=== PATIENT | female | born 1955 | race Two or more races ===

== ENCOUNTER 2020-09-19 03:33 | Emergency (ER) | payer OTHER ==
[~2020-09-19] VITALS: Ht 157.5 cm; Wt 122.5 kg
[2020-09-19 03:40] VITALS: BP 178/92
[2020-09-19] MEDS ORDERED: PERCOCET 5-3251 EACH ORAL (03:53)
[2020-09-19] MEDS ORDERED: PREDNISONE20 MG ORAL (03:53)
--- NOTE | 2020-09-19 03:53 | Emergency Room Report ---
History of Present Illness General Chief Complaint: Pain Source: Patient Present Illness HPI This is a 65-year-old female with a BMI of 49, history of high blood pressure and diabetes. She presents with treatment of neck pain and arm pain. She had this problem before. She was at [facility] within the last year. She says she has x-ray and study done. She also has a history of lower back pain with sciatica. She complained of neck pain on the right side. It radiates down her left arm. Pain is sharp. 10 out of 10. Worse with movement of her neck. Better with rest. No focal deficit. No anesthesia. No incontinence of bowel or urine. Allergies: Coded Allergies: No Known Allergies (Unverified , 09/19/20) COVID-19 Screening Contact w/high risk pt: No Experienced COVID-19 symptoms?: No COVID-19 Testing performed CANINE ENFORCEMENT OFFICER: No Patient History Past Medical History: see triage record, old chart reviewed, DM, HTN Past Surgical History: other Pertinent Family History: none Social History: Denies: alcohol use Now: No Immunizations: other Reviewed Nursing Documentation: PMH: Agreed; PSxH: Agreed Nursing Documentation-PMH Hx Hypertension: Yes Hx Diabetes: Yes Review of Systems Eye: Denies: eye pain, blurred vision ENT: Denies: ear pain, nose congestion, throat swelling Respiratory: Denies: cough, shortness of breath Cardiovascular: Denies: chest pain, palpitations Gastrointestinal: Denies: abdominal pain, diarrhea, nausea, vomiting Musculoskeletal: Reports: joint pain; Denies: back pain Skin: Denies: rash Neurological: Denies: headache, numbness Endocrine: Denies: increased thirst, increased urine Hematologic/Lymphatic: Denies: easy bruising All Other Systems: negative except mentioned in HPI Physical Exam Vital Signs Date Time Temp Pulse Resp B/P (MAP) Pulse Ox O2 Delivery O2 Flow Rate FiO2 09/19/20 03:36 98.2 76 18 178/92 (120) 98 Room Air Vitals blood pressure Sp02 EP Interpretation: reviewed, normal General Appearance: well appearing, no apparent distress, alert, obese Head: normocephalic, atraumatic Eyes: bilateral eye PERRL, bilateral eye EOMI ENT: hearing grossly normal, normal pharynx Neck: full range of motion, supple, no meningismus, other - Tenderness to the right lateral aspect of her neck. No midline tenderness. No anesthesia. Respiratory: chest non-tender, lungs clear, normal breath sounds Cardiovascular #1: regular rate, rhythm, no murmur Gastrointestinal: normal bowel sounds, non tender, no mass, no organomegaly, no bruit, non-distended Musculoskeletal: back normal, normal range of motion, gait/station normal Psychiatric: mood/affect normal Medical Decision Making Diagnostic Impression: Primary Impression: Cervical radiculopathy, acute Additional Impressions: Hypertension Qualified Codes: I10 - Essential (primary) hypertension Morbid obesity with BMI of 45.0-49.9, adult ER Course Patient presents with cervical radiculopathy. No evidence of cauda equina syndrome, spinal epidural abscess or neoplastic process. I see no need for diagnostic studies since this is a chronic issue and she has studies done in the past. Last Vital Signs Date Time Temp Pulse Resp B/P (MAP) Pulse Ox O2 Delivery O2 Flow Rate FiO2 09/19/20 03:36 98.2 76 18 178/92 (120) 98 Room Air Status: improved Disposition: HOME, SELF-CARE Condition: Stable Scripts Prednisone* (PREDNISONE*) 20 Mg Tablet 20 MG ORAL DAILY, #5 TAB Prov: Baljeet Ansari MD 09/19/20 Oxycodone/Acetaminophen 5-325* (PERCOCET 5-325 MG TABLET*) 1 Each Tablet 1 TAB ORAL Q6H PRN for For Pain, #20 TAB Prov: Baljeet Ansari MD 09/19/20 Additional Instructions: Follow-up with your doctor in 7 days. If you have not had an MRI, you may need one. Return if symptoms worsen. Baljeet Ansari MD Sep 19, 2020 03:53
[2020-09-19] MEDS ORDERED: HYDROmorphone 1mg/ml Carpuject IM ONE (04:00)
[2020-09-19 04:04] VITALS: BP 157/79
== END 2020-09-19 04:07 | disposition home or self-care (01) ==
LOC: EDBD 03:33 → EMR 03:50
DX: M54.12 Radiculopathy, cervical region (principal); I10 Essential (primary) hypertension; E66.01 Morbid (severe) obesity due to excess calories; Z68.42 Body mass index [BMI] 45.0-49.9, adult; E11.9 Type 2 diabetes mellitus without complications
CPT/HCPCS: J1170; Z7502; 99282

== ENCOUNTER 2020-10-10 10:19 | Emergency (ER) | payer OTHER ==
[~2020-10-10] VITALS: Ht 157.5 cm; Wt 145.1 kg
[~2020-10-10 10:19] MED LIST: PERCOCET 5-3251 EACH ORAL; PREDNISONE20 MG ORAL
[2020-10-10 10:27] VITALS: BP 151/100
--- NOTE | 2020-10-10 10:27 | NUR ---
ED Nurse Note: Pt walked in to ED from home c/o left arm pain radiating to left thand x 3 days. Denies injury/ trauma to the area. AAOx4, verbally responsive. ERMD at bedside.
[2020-10-10] MEDS ORDERED: Methocarbamol 500mg tab ORAL ONE (10:45)
[2020-10-10] MEDS ORDERED: Ketorolac 30mg Inj IM ONE (10:45)
--- NOTE | 2020-10-10 10:49 | Emergency Room Report ---
History of Present Illness General Chief Complaint: Pain Source: Patient (Katie Irwin M.D.) Present Illness HPI Patient is a 65-year-old female past medical history of obesity, cervical radiculopathy and arthritis who presents to the ER complaining of left arm pain. Patient states this has been going on for a long time and has been seen here previously for the same complaint. Patient states that she was told to take Tylenol but that does not help her pain. She says the pain is worse when turning her neck. She denies any trauma. Denies any headache. She denies any chest pain or shortness of breath. She denies any focal weakness. She denies any paresthesias. Patient states that the maximal pain starts at her shoulder and goes down. (Katie Irwin M.D.) Allergies: Coded Allergies: No Known Allergies (Unverified , 09/19/20) COVID-19 Screening Contact w/high risk pt: No Experienced COVID-19 symptoms?: No COVID-19 Testing performed SENIOR BIOSTATISTICIAN/GROUP LEADER: No (Katie Irwin M.D.) Patient History Reviewed Nursing Documentation: PMH: Agreed; PSxH: Agreed (Katie Irwin M.D.) Nursing Documentation-PMH Past Medical History: No History, Except For Hx Hypertension: Yes Hx Asthma: Yes Hx Diabetes: Yes (Katie Irwin M.D.) Review of Systems All Other Systems: negative except mentioned in HPI (Katie Irwin M.D.) Physical Exam Vital Signs Date Time Temp Pulse Resp B/P (MAP) Pulse Ox O2 Delivery O2 Flow Rate FiO2 10/10/20 10:23 97.7 74 18 151/100 (117) 98 Room Air Sp02 EP Interpretation: reviewed, normal General Appearance: alert, GCS 15, non-toxic, mild distress Head: normocephalic, atraumatic Eyes: bilateral eye normal inspection, bilateral eye PERRL ENT: hearing grossly normal, normal pharynx, no angioedema, normal voice Neck: full range of motion, supple/symm/no masses, tender - Left lateral cervical spine tenderness to palpation with no step-offs Respiratory: chest non-tender, lungs clear, normal breath sounds, speaking full sentences Cardiovascular #1: normal peripheral pulses, regular rate, rhythm Cardiovascular #2: 2+ radial (R), 2+ radial (L) Gastrointestinal: normal bowel sounds, non tender, soft, non-distended, no guarding, no rebound, overweight Rectal: deferred Musculoskeletal: other - Left diffuse shoulder tenderness to palpation and range of motion no obvious deformity sensation and strength intact Neurologic: motor strength/tone normal, splash line operator III-XII nml as tested, distal neuro normal, oriented x3, sensory intact Psychiatric: no suicidal/homicidal ideation Skin: no rash Lymphatic: no adenopathy (Katie Irwin M.D.) Medical Decision Making Diagnostic Impression: Primary Impression: Pneumonia Additional Impressions: Cervical radiculopathy, acute Morbid obesity with BMI of 45.0-49.9, adult Osteoarthritis ER Course Patient pancultured. Patient's COVID-19 PCR negative. Patient's chest x-ray and physical exam consistent with pneumonia. Patient started on azithromycin and ceftriaxone. Patient will be admitted for further treatment and evaluation. Laboratory Tests Test 10/10/20 13:00 White Blood Count 12.5 K/UL (4.8-10.8) H Red Blood Count 4.11 M/UL (4.20-5.40) L Hemoglobin 12.6 G/DL (12.0-16.0) Hematocrit 40.0 % (37.0-47.0) Mean Corpuscular Volume 97 FL (80-99) Mean Corpuscular Hemoglobin 30.7 PG (27.0-31.0) Mean Corpuscular Hemoglobin Concent 31.6 G/DL (32.0-36.0) L Red Cell Distribution Width 13.6 % (11.6-14.8) Platelet Count 329 K/UL (150-450) Mean Platelet Volume 8.1 FL (6.5-10.1) Neutrophils (%) (Auto) 69.2 % (45.0-75.0) Lymphocytes (%) (Auto) 11.7 % (20.0-45.0) L Monocytes (%) (Auto) 11.8 % (1.0-10.0) H Eosinophils (%) (Auto) 5.9 % (0.0-3.0) H Basophils (%) (Auto) 1.4 % (0.0-2.0) Prothrombin Time 10.0 SEC (9.30-11.50) Prothrombin Time INR 0.9 (0.9-1.1) Activated Partial Thromboplast Time 25 SEC (23-33) Sodium Level 130 MMOL/L (136-145) L Potassium Level 4.2 MMOL/L (3.5-5.1) Chloride Level 97 MMOL/L (98-107) L Carbon Dioxide Level 26 MMOL/L (21-32) Anion Gap 7 mmol/L (5-15) Blood Urea Nitrogen 20 mg/dL (7-18) H Creatinine 1.0 MG/DL (0.55-1.30) Estimated Glomerular Filtration Rate 56.0 mL/min (>60) Glucose Level 124 MG/DL (74-106) H Lactic Acid Level 1.70 mmol/L (0.4-2.0) Calcium Level 9.6 MG/DL (8.5-10.1) Magnesium Level 1.8 MG/DL (1.8-2.4) Total Bilirubin 0.3 MG/DL (0.2-1.0) Aspartate Amino Transferase (AST) 18 U/L (15-37) Alanine Aminotransferase (ALT) 20 U/L (12-78) Alkaline Phosphatase 95 U/L (46-116) Troponin I 0.000 ng/mL (0.000-0.056) Pro-B-Type Natriuretic Peptide 107 pg/mL (0-125) Total Protein 7.6 G/DL (6.4-8.2) Albumin 3.2 G/DL (3.4-5.0) L Globulin 4.4 g/dL Albumin/Globulin Ratio 0.7 (1.0-2.7) L Microbiology Date/Time Source Procedure Growth Status 10/10/20 13:00 Nasopharynx SARS-CoV-2 RdRp Gene Assay - Final Complete (Katie Irwin M.D.) ER Course Assumed care of the patient from the previous provider at approximately 1400. Please refer to initial note for full history and physical exam. Briefly, 65-year-old female presenting for evaluation of myalgias diagnosed with pneumonia. Covid negative. Other labs within normal limits. Received antibiotics. At the time of signout we are waiting approval for admission. [facility]. Yee is the accepting physician. She is stable for transport. 0450 No beds available at [facility]. Will transfer to [facility]. Dr. Pavon is the accepting physician. Laboratory Tests Test 10/10/20 13:00 10/10/20 13:50 White Blood Count 12.5 K/UL (4.8-10.8) H Red Blood Count 4.11 M/UL (4.20-5.40) L Hemoglobin 12.6 G/DL (12.0-16.0) Hematocrit 40.0 % (37.0-47.0) Mean Corpuscular Volume 97 FL (80-99) Mean Corpuscular Hemoglobin 30.7 PG (27.0-31.0) Mean Corpuscular Hemoglobin Concent 31.6 G/DL (32.0-36.0) L Red Cell Distribution Width 13.6 % (11.6-14.8) Platelet Count 329 K/UL (150-450) Mean Platelet Volume 8.1 FL (6.5-10.1) Neutrophils (%) (Auto) 69.2 % (45.0-75.0) Lymphocytes (%) (Auto) 11.7 % (20.0-45.0) L Monocytes (%) (Auto) 11.8 % (1.0-10.0) H Eosinophils (%) (Auto) 5.9 % (0.0-3.0) H Basophils (%) (Auto) 1.4 % (0.0-2.0) Prothrombin Time 10.0 SEC (9.30-11.50) Prothrombin Time INR 0.9 (0.9-1.1) Activated Partial Thromboplast Time 25 SEC (23-33) Sodium Level 130 MMOL/L (136-145) L Potassium Level 4.2 MMOL/L (3.5-5.1) Chloride Level 97 MMOL/L (98-107) L Carbon Dioxide Level 26 MMOL/L (21-32) Anion Gap 7 mmol/L (5-15) Blood Urea Nitrogen 20 mg/dL (7-18) H Creatinine 1.0 MG/DL (0.55-1.30) Estimated Glomerular Filtration Rate 56.0 mL/min (>60) Glucose Level 124 MG/DL (74-106) H Lactic Acid Level 1.70 mmol/L (0.4-2.0) Calcium Level 9.6 MG/DL (8.5-10.1) Magnesium Level 1.8 MG/DL (1.8-2.4) Total Bilirubin 0.3 MG/DL (0.2-1.0) Aspartate Amino Transferase (AST) 18 U/L (15-37) Alanine Aminotransferase (ALT) 20 U/L (12-78) Alkaline Phosphatase 95 U/L (46-116) Troponin I 0.000 ng/mL (0.000-0.056) Pro-B-Type Natriuretic Peptide 107 pg/mL (0-125) Total Protein 7.6 G/DL (6.4-8.2) Albumin 3.2 G/DL (3.4-5.0) L Globulin 4.4 g/dL Albumin/Globulin Ratio 0.7 (1.0-2.7) L Urine Color Pale yellow Urine Appearance Clear Urine pH 6 (4.5-8.0) Urine Specific [place] 1.005 (1.005-1.035) Urine Protein Negative (NEGATIVE) Urine Glucose (UA) Negative (NEGATIVE) Urine Ketones Negative (NEGATIVE) Urine Blood Negative (NEGATIVE) Urine Nitrite Negative (NEGATIVE) Urine Bilirubin Negative (NEGATIVE) Urine Urobilinogen Normal MG/DL (0.0-1.0) Urine Leukocyte Esterase Negative (NEGATIVE) Microbiology Date/Time Source Procedure Growth Status 10/10/20 13:00 Nasopharynx SARS-CoV-2 RdRp Gene Assay - Final Complete (Dinesh Diaz MD) EKG Diagnostic Results Troponin ordered: No - ordered for shoulder pain EKG Time: 10:48 EP Interpretation: Katie Irwin MD Rate: normal - 70 bpm Rhythm: NSR ST Segments: no acute changes ASA given to the pt in ED: No (Katie Irwin M.D.) Chest X-Ray Diagnostic Results Chest X-Ray Diagnostic Results : Chest X-Ray Ordered: Yes # of Views/Limited/Complete: 1 View Indication: Other - Shoulder pain EP Interpretation: Yes Interpretation: no effusion, no pneumothorax, other - Bilateral interstitial opacities Impression: Other - Pneumonia Electronically Signed by: Katie Irwin MD (Katie Irwin M.D.) Other X-Ray Diagnostic Results Other X-Ray Diagnostic Results #1: X-Ray ordered: Left shoulder # of Views/Limited Vs Complete: 3 View Indication: Pain EP Interpretation: Yes Interpretation: no dislocation, no soft tissue swelling, no fractures Impression: No acute disease Electronically Signed by: Katie Irwin MD Other X-Ray Diagnostic Results #2: X-Ray ordered: C-spine # of Views/Limited Vs Complete: Complete Indication: Pain EP Interpretation: Yes Interpretation: no dislocation, no soft tissue swelling, no fractures Impression: No acute disease Electronically Signed by: Katie Irwin MD (Katie Irwin M.D.) Last Vital Signs Date Time Temp Pulse Resp B/P (MAP) Pulse Ox O2 Delivery O2 Flow Rate FiO2 10/10/20 10:23 97.7 74 18 151/100 (117) 98 Room Air (Katie Irwin M.D.) Disposition: SHORT-TERM HOSP Condition: Stable Signed Out To: Dr. Diaz at 1400 pending insurance approval (Katie Irwin M.D.) Referrals: [facility],REFERRING (PCP) Additional Instructions: Please note that this report is being documented using [employer]isle[employer] technology. This can lead to erroneous entry secondary to incorrect interpretation by the dictating instrument. Katie Irwin M.D. Oct 10, 2020 10:49 Dinesh Diaz MD Oct 10, 2020 14:34
--- NOTE | 2020-10-10 11:00 | NUR ---
ED Nurse Note: Pt was taken to Xray via [facility] accompanied by a tech.
--- NOTE | 2020-10-10 11:20 | NUR ---
ED Nurse Note: Pt returned from Xray.
[2020-10-10 11:38] VITALS: BP 120/68
--- NOTE | 2020-10-10 12:34 | Diagnostic Imaging Report ---
EXAM: XR Cervical Spine, 4 or 5 Views CLINICAL HISTORY: PAIN TECHNIQUE: Frontal, lateral and oblique views of the cervical spine. COMPARISON: None FINDINGS: Bones: No vertebral body height loss to suggest acute fracture. No subluxation. Straightening of the normal cervical lordosis. Mild degenerative changes in the lower cervical spine. Narrowing of the neural foramina the lower cervical spine. Soft tissues: No acute finding. IMPRESSION: No acute abnormality.
--- NOTE | 2020-10-10 12:35 | Diagnostic Imaging Report ---
EXAM: XR Chest, 1 View CLINICAL HISTORY: PAIN TECHNIQUE: Frontal view of the chest. COMPARISON: None FINDINGS: Hardware: None. Lungs/pleura: Diffuse interstitial opacities. Possible small calcified granuloma in the right lower lung No pleural effusion or pneumothorax. Heart/mediastinum: Mild enlargement of the cardiac silhouette. Soft tissues: Unremarkable. Bones: No acute fracture. Upper abdomen: Normal. IMPRESSION: Diffuse interstitial opacities may represent pulmonary vasculature congestion and edema versus infectious/inflammatory process.
--- NOTE | 2020-10-10 12:36 | Diagnostic Imaging Report ---
EXAM: XR Left Shoulder Complete, 2 or More Views CLINICAL HISTORY: PAIN TECHNIQUE: Two or more views of the left shoulder. COMPARISON: None FINDINGS: Bones/joints: No displaced fracture or dislocation identified. Degenerative changes of the left acromio clavicular joint. Osteopenia. Small ossification or calcific tendinosis along the left humeral head. Soft tissues: Mild soft tissue prominence. Other: Interstitial opacities in the visualized left lung. IMPRESSION: No displaced fracture or dislocation identified.
--- NOTE | 2020-10-10 13:08 | NUR ---
ED Nurse Note:covid swab, blood and cultures sent to labs
[2020-10-10 13:23] LABS: BASOPHILS % (AUTO) 1.4 % (0.0-2.0); EOSINOPHILS % (AUTO) 5.9 % (0.0-3.0); HEMOGLOBIN 12.6 G/DL (12.0-16.0); LYMPHOCYTES % (AUTO) 11.7 % (20.0-45.0); MEAN CORPUSCULAR VOLUME 97 FL (80-99); MONOCYTES % (AUTO) 11.8 % (1.0-10.0); NEUTROPHILS % (AUTO) 69.2 % (45.0-75.0); PLATELET COUNT 329 K/UL (150-450); RED BLOOD COUNT 4.11 M/UL (4.20-5.40); RED CELL DISTRIBUTION WIDTH 13.6 % (11.6-14.8); WHITE BLOOD COUNT 12.5 K/UL (4.8-10.8)
[2020-10-10 13:43] LABS: CALCIUM 9.6 MG/DL (8.5-10.1); POTASSIUM 4.2 MMOL/L (3.5-5.1)
[2020-10-10 13:44] LABS: INR 0.9 (0.9-1.1)
[2020-10-10] MEDS ORDERED: Azithromycin 500 MG in NS 275 ML IV ONE (13:45)
[2020-10-10] MEDS ORDERED: cefTRIAXone 1 GM in NS 55 ML IVPB ONE (13:45)
[2020-10-10 13:54] LABS: ALBUMIN 3.2 G/DL (3.4-5.0); ALBUMIN/GLOBULIN RATIO 0.7 (1.0-2.7); BILIRUBIN,TOTAL 0.3 MG/DL (0.2-1.0)
[2020-10-10 14:25] LABS: APPEARANCE,URINE CLEAR; BILIRUBIN, URINE NEGATIVE (NEGATIVE); COLOR,URINE PALE YELLOW; GLUCOSE, URINE (UA) NEGATIVE (NEGATIVE); KETONES,URINE NEGATIVE (NEGATIVE); LEUKOCYTE ESTERASE ,URINE NEGATIVE (NEGATIVE); NITRITE,URINE NEGATIVE (NEGATIVE); PH,URINE 6 (4.5-8.0); PROTEIN,URINE NEGATIVE (NEGATIVE); UROBILINOGEN,URINE NORMAL MG/DL (0.0-1.0)
[2020-10-10 16:07] VITALS: BP 129/72
--- NOTE | 2020-10-10 17:20 | NUR ---
ED Nurse Note: Report given to Eli DURANT from [facility].
[2020-10-10 17:22] VITALS: BP 141/75
--- NOTE | 2020-10-10 17:22 | NUR ---
TRANSFER TO FLOOR: Patient transferred to [facility], picked up by 4 EMT via [facility]. Report given to Eli DURANT. Pt AAOx4, verbally responsive. No SOB, on room air. IV line on left hand 22g patent and intact. No skin issues. All belongings sent to the pharmacy.
== END 2020-10-10 17:22 | disposition short-term general hospital (02) ==
LOC: EMR 10:28
DX: J18.9 Pneumonia, unspecified organism (principal); M54.12 Radiculopathy, cervical region; E66.01 Morbid (severe) obesity due to excess calories; Z68.42 Body mass index [BMI] 45.0-49.9, adult; M25.512 Pain in left shoulder; Z20.828 Contact with and (suspected) exposure to other viral communicable diseases; J45.909 Unspecified asthma, uncomplicated; I10 Essential (primary) hypertension; E11.9 Type 2 diabetes mellitus without complications
CPT/HCPCS: 36415; 71045; 72040; 73030; 80053; 81003; 83605; 83735; 83880; 84484; 85025; 85610; 85730; 87040; 93005; 96365; 96368; 96372; J0456; J0696; J1885; J7050; U0002; Z7502; 99284